=== PATIENT | male | born 1990 | race Caucasian/White ===

== ENCOUNTER → 2021-09-17 | Outpatient (CLI) | payer OTHER ==
[~2021-09-17] MED LIST: CITRATE OF MAG296 ML; CYCLOBENZAPRINE10 MG PO; DOCUSATE SODIU100 MG PO; ENDOCET 10-3251 EACH PO; GLYCOLAX POWDER17 G1 PO; IRON325 PO; JUVEN PO; LINZESS145 MCG PO; LYRICA 75 MG CA75 MG PO; MOM PO; OXYCODON-ACETA1 EAC1 PO; OXYCONTIN PO; OXYCONTIN40 MG PO; PHENERGAN 25 MG25 M1 PO; PROMETHAZINE12.5 M1 PO; SENNA PO; TOPROL XL50 MG PO; VITAMIN D1000 UNI1 PO; VITAMINC500 PO; ZINC SULFATE 2220 M1 PO
== END ==
LOC: HYPER 09:41
PROVIDERS: ATTEND Emergency Medicine
DX: T87.81 Dehiscence of amputation stump (principal); L97.124 Non-pressure chronic ulcer of left thigh with necrosis of bone; L97.822 Non-pressure chronic ulcer of other part of left lower leg with fat layer exposed; Z79.82 Long term (current) use of aspirin; Z87.891 Personal history of nicotine dependence; Z79.899 Other long term (current) drug therapy; Z98.890 Other specified postprocedural states; Z95.5 Presence of coronary angioplasty implant and graft; Y83.5 Amputation of limb(s) as the cause of abnormal reaction of the patient, or of later complication, without mention of misadventure at the time of the procedure; Y92.238 Other place in hospital as the place of occurrence of the external cause

== ENCOUNTER → 2021-09-26 | Outpatient (CLI) | payer OTHER | LOC: HYPER 11:02 | PROVIDERS: ATTEND Emergency Medicine | DX: T87.81 Dehiscence of amputation stump (principal); L97.124 Non-pressure chronic ulcer of left thigh with necrosis of bone; L97.822 Non-pressure chronic ulcer of other part of left lower leg with fat layer exposed; Z79.82 Long term (current) use of aspirin; Z87.891 Personal history of nicotine dependence; Z79.899 Other long term (current) drug therapy; Z95.5 Presence of coronary angioplasty implant and graft; Y83.5 Amputation of limb(s) as the cause of abnormal reaction of the patient, or of later complication, without mention of misadventure at the time of the procedure ==